=== PATIENT | female | born 1990 | race Caucasian/White ===

== ENCOUNTER 2017-01-09 17:00 | Inpatient (IN) | payer OTHER ==
[~2017-01-09] VITALS: Ht 167.6 cm; Wt 94.8 kg
[2017-01-09] MEDS ORDERED: PRENATAL VITAMI1 TA2 PO (17:44)
[2017-01-09 17:58] VITALS: BP 134/70
[2017-01-09] MEDS ORDERED: LACTATED RINGERS 1,000 ML IV SCH (19:00)
[2017-01-09] MEDS ORDERED: PROMETHAZINE 25 MG/ML VIAL IM/IVP PRN (19:00)
[2017-01-09] MEDS ORDERED: MISOPROSTOL 25 MCG TAB VG PRN (19:00)
[2017-01-09] MEDS ORDERED: OXYTOCIN 20 UNITS/LR PREMIX 1,000 ML IV SCH (19:00)
[2017-01-09] MEDS ORDERED: NALBUPHINE 10 MG/ML AMP IVP PRN (19:00)
[2017-01-09] MEDS ORDERED: OXYTOCIN 10 UNITS/ML VIAL ONE (21:08)
[2017-01-09] MEDS ORDERED: OXYTOCIN 20 UNITS/LR PREMIX 1,000 ML IV ONE (21:09)
[2017-01-09 21:31] VITALS: BP 118/56
[2017-01-09] MEDS ORDERED: ROPIVACAINE 0.2%/NS PREMIX 250 ML EPI ONE (21:43)
[2017-01-09] MEDS ORDERED: ROPIVACAINE 0.2%/NS PREMIX 250 ML EPI SCH (21:55)
[2017-01-09] MEDS ORDERED: MEASLES, MUMPS, AND RUBELLA 1 VIAL SQVAC PRN (23:25)
[2017-01-09] MEDS ORDERED: WITCH HAZEL 40 PAD PACKAGE TP PRN (23:25)
[2017-01-09] MEDS ORDERED: IBUPROFEN 800 MG TAB PO PRN (23:25)
[2017-01-09] MEDS ORDERED: HYDROcodone/APAP 5/325 MG 1 TAB TAB PO PRN (23:25)
[2017-01-09] MEDS ORDERED: OXYTOCIN 10 UNITS/ML VIAL IM PRN (23:25)
[2017-01-09] MEDS ORDERED: BENZOCAINE/MENTHOL 20%-0.5% 60 GM CAN TP PRN (23:25)
[2017-01-09] MEDS ORDERED: METHYLERGONOVINE 0.2 MG/ML AMP IM PRN (23:25)
[2017-01-09] MEDS ORDERED: oxyCODONE/APAP 5/325 MG 1 TAB TAB PO PRN (23:25)
[2017-01-09] MEDS ORDERED: TEMAZEPAM 15 MG CAP PO PRN (23:25)
--- NOTE | 2017-01-10 10:05 | NUR ---
PATIENT HAS BEEN SCREENED AND CATEGORIZED LOW NUTRITION RISK. PATIENT WILL BE SEEN WITHIN 7 DAYS OF ADMISSION. 01/16/[address]
[2017-01-10] MEDS ORDERED: DOCUSATE SOD/SENNA 50/8.6 MG 1 TAB PO SCH (21:00)
[2017-01-11] MEDS ORDERED: MOTRIN600 MG PO (13:23)
== END 2017-01-11 15:30 | disposition home or self-care (01) | DRG 560 ==
LOC: MLD 17:00 → OBSVTOIN 19:00 → MFCC 01-10 02:37
PROVIDERS: ADMIT Obstetrics & Gynecology; ATTEND Obstetrics & Gynecology
PROC: 10E0XZZ Delivery of Products of Conception, External Approach (ICD-10-PCS; principal; 2017-01-09)
PROC: 3E0S3CZ (ICD-10-PCS; 2017-01-09)
PROC: 00HU33Z Insertion of Infusion Device into Spinal Canal, Percutaneous Approach (ICD-10-PCS; 2017-01-09)
PROC: 3E0234Z Introduction of Serum, Toxoid and Vaccine into Muscle, Percutaneous Approach (ICD-10-PCS; 2017-01-09)
DX: O99.214 Obesity complicating childbirth (principal); E66.9 Obesity, unspecified; Z23 Encounter for immunization; Z3A.39 39 weeks gestation of pregnancy; Z37.0 Single live birth; Z68.38 Body mass index [BMI] 38.0-38.9, adult
CPT/HCPCS: G0378 ×2

== ENCOUNTER 2018-05-19 18:15 | Inpatient (IN) | payer OTHER ==
[~2018-05-19] VITALS: Ht 167.6 cm; Wt 97.5 kg
[~2018-05-19 18:15] MED LIST: IBUP-2213 PO
[2018-05-19] MEDS ORDERED: OXYTOCIN 20 UNITS in LACTATED RINGERS 1,000 ML IV SCH (18:38)
[2018-05-19] MEDS ORDERED: LACTATED RINGERS 1,000 ML IV SCH (18:38)
[2018-05-19] MEDS ORDERED: CARBOPROST 250 MCG/ML AMP IM PRN ×2 (18:40)
[2018-05-19] MEDS ORDERED: PROMETHAZINE 25 MG/ML VIAL IVP PRN (18:40)
[2018-05-19] MEDS ORDERED: METHYLERGONOVINE 0.2 MG/ML AMP IM PRN ×2 (18:40→20:45)
[2018-05-19] MEDS ORDERED: NALBUPHINE 10 MG/ML AMP IVP PRN (18:40)
[2018-05-19] MEDS ORDERED: IBUPROFEN 800 MG TAB PO PRN ×2 (18:40→20:45)
[2018-05-19] MEDS ORDERED: TERBUTALINE 1 MG/ML VIAL SUBQ SCH (18:45)
[2018-05-19] MEDS ORDERED: PREN-546 PO (18:50)
[2018-05-19] MEDS ORDERED: AMPICILLIN 2,000 MG VIAL ONE (19:16)
[2018-05-19] MEDS ORDERED: OXYTOCIN 20 UNITS/LR PREMIX 1,000 ML IV ONE (19:21)
[2018-05-19] MEDS ORDERED: LIDOCAINE MPF 1% - **ER/OR** 0 ML ONE (19:22)
[2018-05-19] MEDS ORDERED: OXYTOCIN 10 UNITS/ML VIAL ONE ×2 (19:22→23:56)
[2018-05-19] MEDS ORDERED: AMPICILLIN 2,000 MG in NACL 0.9% 100 ML IV SCH (19:30)
[2018-05-19] MEDS ORDERED: AMPICILLIN 1,000 MG VIAL IVP SCH (20:00)
[2018-05-19 20:08] LABS: APPEARANCE,URINE CLEAR (CLEAR); BILIRUBIN,URINE NEGATIVE (NEGATIVE); BLOOD, URINE NEGATIVE (NEGATIVE); COLOR,URINE YELLOW (YELLOW); LEUKOCYTE ESTERASE ,URINE NEGATIVE (NEGATIVE); NITRITE, URINE NEGATIVE (NEGATIVE); UGLUCOSE NEGATIVE (NEGATIVE)
[2018-05-19] MEDS ORDERED: oxyCODONE/APAP 5/325 MG 1 TAB TAB PO PRN (20:45)
[2018-05-19] MEDS ORDERED: TEMAZEPAM 15 MG CAP PO PRN (20:45)
[2018-05-19] MEDS ORDERED: BENZOCAINE/MENTHOL 20%-0.5% 60 GM CAN TP PRN (20:45)
[2018-05-19] MEDS ORDERED: MEASLES, MUMPS, AND RUBELLA 1 VIAL SQVAC PRN (20:45)
[2018-05-19] MEDS ORDERED: OXYTOCIN 10 UNITS/ML VIAL IM PRN (20:45)
[2018-05-19] MEDS ORDERED: DOCUSATE SOD/SENNA 50/8.6 MG 1 TAB PO SCH (21:00)
[2018-05-19] MEDS ORDERED: METHYLERGONOVINE 0.2 MG/ML AMP ONE (22:53)
[2018-05-19] MEDS ORDERED: MISOPROSTOL 100 MCG TAB ONE (23:28)
[2018-05-20] MEDS ORDERED: AMPICILLIN 1,000 MG VIAL IVP SCH
[2018-05-20 00:08] LABS: BASOPHILS % (AUTO) 0.3 % (0.0-2.0); HEMATOCRIT 35.1 % (36-48); HEMOGLOBIN 11.9 g/dL (12.0-16.0); LYMPHOCYTES # (AUTO) 1.5 K/uL (2.5-16.5); LYMPHOCYTES % (AUTO) 8.2 % (20.5-51.1); MEAN CORPUSCULAR HEMOGLOBIN 30 pg (27-31); MEAN CORPUSCULAR HGB CONC 34 g/dL (33-37); MEAN CORPUSCULAR VOLUME 88.9 fL (80-94); MONOCYTES # (AUTO) 0.9 K/uL (0.8-1.0); MONOCYTES % (AUTO) 4.9 % (1.7-9.3); NEUTROPHILS # (AUTO) 15.9 K/uL (1.8-7.7); NEUTROPHILS % (AUTO) 86.6 % (42.2-75.2); PLATELET COUNT (AUTO) 268 K/uL (140-450); RED BLOOD CELL COUNT(AUTO) 3.95 MIL/uL (4.20-5.40); RED CELL DISTRIBUTION WIDTH 13.6 % (11.6-13.7); WHITE BLOOD COUNT (AUTO) 18.4 K/uL (4.8-10.8)
[2018-05-20] MEDS ORDERED: OXYTOCIN 20 UNITS in LACTATED RINGERS 1,000 ML IV SCH (00:10)
[2018-05-20] MEDS ORDERED: MISOPROSTOL 100 MCG TAB RC STA (00:32)
[2018-05-20] MEDS: HYDROcodone/APAP 5/325 MG 1 TAB TAB PO PRN ×3 (02:49→19:52)
[2018-05-20] MEDS ORDERED: METHYLERGONOVINE 0.2 MG TAB PO PRN (06:35)
[2018-05-20 08:58] LABS: BASOPHILS # (AUTO) 0.1 K/uL (0.00-0.22); BASOPHILS % (AUTO) 0.4 % (0.0-2.0); EOSINOPHILS % (AUTO) 0.2 % (0.0-4.0); HEMATOCRIT 27.7 % (36-48); HEMOGLOBIN 9.7 g/dL (12.0-16.0); LYMPHOCYTES # (AUTO) 2.2 K/uL (2.5-16.5); LYMPHOCYTES % (AUTO) 15.8 % (20.5-51.1); MEAN CORPUSCULAR HEMOGLOBIN 31 pg (27-31); MEAN CORPUSCULAR HGB CONC 35 g/dL (33-37); MEAN CORPUSCULAR VOLUME 88.3 fL (80-94); NEUTROPHILS # (AUTO) 10.8 K/uL (1.8-7.7); NEUTROPHILS % (AUTO) 76.6 % (42.2-75.2); PLATELET COUNT (AUTO) 232 K/uL (140-450); RED BLOOD CELL COUNT(AUTO) 3.14 MIL/uL (4.20-5.40); RED CELL DISTRIBUTION WIDTH 13.4 % (11.6-13.7)
[2018-05-21] MEDS: HYDROcodone/APAP 5/325 MG 1 TAB TAB PO PRN (09:40)
--- NOTE | 2018-05-21 10:11 | NUR ---
PATIENT HAS BEEN SCREENED AND CATEGORIZED LOW NUTRITION RISK. PATIENT WILL BE SEEN WITHIN 7 DAYS OF ADMISSION. 05/26/[address]
== END 2018-05-21 17:00 | disposition home or self-care (01) | DRG 560 ==
LOC: OBSVTOIN 18:15 → MLD 18:15 → MFCC 22:30
PROVIDERS: ADMIT Obstetrics & Gynecology; ATTEND Obstetrics & Gynecology
PROC: 10E0XZZ Delivery of Products of Conception, External Approach (ICD-10-PCS; principal; 2018-05-19)
DX: O99.824 Streptococcus B carrier state complicating childbirth (principal); Z37.0 Single live birth; Z3A.38 38 weeks gestation of pregnancy
CPT/HCPCS: 36415; 51702; 59409; 81003; 85025; 86592; 86886; 86900; 86901; J0290; J2001; J2210; J2590; J7120

== ENCOUNTER 2019-03-14 13:52 | Emergency (ER) | payer OTHER ==
[~2019-03-14] VITALS: Ht 167.6 cm; Wt 90.7 kg
[~2019-03-14 13:52] MED LIST changes: +PREN-546 PO
[2019-03-14 14:23] VITALS: BP 140/86
--- NOTE | 2019-03-14 14:36 | NUR ---
PT AMB TO BED2
--- NOTE | 2019-03-14 14:50 | NUR ---
PT C/O L SIDE CP X 2 WEEKS 04/05 PER PT "SORE-MUSCLE TYPE PAIN", NON RADIATING. PT DENIES N/V/D/FEVER/RECENT ILLNESS/INJURY. SKIN IS PINK/WARM/DRY; AAOX4 WITH EVEN AND STEADY GAIT; LUNGS CLEAR BL; HR EVEN AND TACHY AT 109, ERMD AWARE; PATIENT POSITIONED FOR COMFORT; HOB ELEVATED; BEDRAILS UP X1; BED DOWN. ER MD MADE AWARE OF PT STATUS.
--- NOTE | 2019-03-14 14:55 | NUR ---
PT PLACED ON SANITOR
--- NOTE | 2019-03-14 15:15 | NUR ---
ERMD AT BEDSIDE
[2019-03-14 15:37] LABS: BASOPHILS % (AUTO) 0.3 % (0.0-2.0); EOSINOPHILS # (AUTO) 0.1 K/uL (0-0.4); EOSINOPHILS % (AUTO) 1.1 % (0.0-4.0); HEMATOCRIT 41.4 % (36-48); HEMOGLOBIN 13.8 g/dL (12.0-16.0); LYMPHOCYTES # (AUTO) 1.9 K/uL (2.5-16.5); LYMPHOCYTES % (AUTO) 17.6 % (20.5-51.1); MEAN CORPUSCULAR HEMOGLOBIN 30 pg (27-31); MEAN CORPUSCULAR HGB CONC 33 g/dL (33-37); MEAN CORPUSCULAR VOLUME 90.3 fL (80-94); MONOCYTES # (AUTO) 0.7 K/uL (0.8-1.0); NEUTROPHILS # (AUTO) 7.9 K/uL (1.8-7.7); PLATELET COUNT (AUTO) 312 K/uL (140-450); RED BLOOD CELL COUNT(AUTO) 4.58 MIL/uL (4.20-5.40); RED CELL DISTRIBUTION WIDTH 15.9 % (11.6-13.7); WHITE BLOOD COUNT (AUTO) 10.7 K/uL (4.8-10.8)
[2019-03-14 16:26] LABS: ANION GAP 11.1 (8-16); CARBON DIOXIDE 31.4 mmol/L (21-32); CREATININE 0.7 mg/dL (0.6-1.3); POTASSIUM 3.5 mmol/L (3.5-5.1)
[2019-03-14 16:32] LABS: ALBUMIN 3.8 g/dL (3.4-5.0); TOTAL BILIRUBIN 0.5 mg/dL (0.0-1.0)
[2019-03-14 17:23] VITALS: BP 140/75
== END 2019-03-14 17:23 | disposition home or self-care (01) ==
LOC: MED 13:52
DX: R07.89 Other chest pain (principal); Z79.899 Other long term (current) drug therapy
CPT/HCPCS: 36415; 71045; 80053; 81002; 81025; 84484; 84702; 85025; 93005; 99284; Q0092

== ENCOUNTER 2020-06-30 15:18 | Emergency (ER) | payer OTHER ==
[~2020-06-30] VITALS: Ht 170.2 cm; Wt 97.5 kg
[2020-06-30 15:27] VITALS: BP 161/83
--- NOTE | 2020-06-30 15:47 | NUR ---
30 y/o female from home c/o lower abd cramping x 3 days. Pt states she took test at home and was +. Unknown last menstrual period due to control shot. Denies vaginal bleeding. Denies N/V/D at this time. Skin warm, dry, and intact. RR even and unlabored. VSS. Pt awake and alert. medhx: htn
--- NOTE | 2020-06-30 15:50 | NUR ---
Urine collected from pt.
--- NOTE | 2020-06-30 16:01 | NUR ---
Dr Guo at bedside examining pt
--- NOTE | 2020-06-30 16:08 | NUR ---
Lab at bedside for blood draw
--- NOTE | 2020-06-30 16:13 | NUR ---
Ultrasound at bedside
[2020-06-30 16:23] LABS: APPEARANCE,URINE CLEAR (CLEAR); BILIRUBIN,URINE NEGATIVE (NEGATIVE); BLOOD, URINE NEGATIVE (NEGATIVE); COLOR,URINE YELLOW (YELLOW); LEUKOCYTE ESTERASE ,URINE NEGATIVE (NEGATIVE); NITRITE, URINE NEGATIVE (NEGATIVE); PH,URINE 6.5 (5.0-9.0); UGLUCOSE NEGATIVE (NEGATIVE)
[2020-06-30 16:24] LABS: BASOPHILS # (AUTO) 0.1 K/uL (0.00-0.22); BASOPHILS % (AUTO) 0.5 % (0.0-2.0); EOSINOPHILS # (AUTO) 0.1 K/uL (0-0.4); EOSINOPHILS % (AUTO) 0.9 % (0.0-4.0); HEMATOCRIT 38.6 % (36-48); HEMOGLOBIN 12.7 g/dL (12.0-16.0); LYMPHOCYTES # (AUTO) 2.3 K/uL (2.5-16.5); LYMPHOCYTES % (AUTO) 21.9 % (20.5-51.1); MEAN CORPUSCULAR HEMOGLOBIN 30 pg (27-31); MEAN CORPUSCULAR HGB CONC 33 g/dL (33-37); MONOCYTES # (AUTO) 0.8 K/uL (0.8-1.0); MONOCYTES % (AUTO) 7.4 % (1.7-9.3); NEUTROPHILS # (AUTO) 7.3 K/uL (1.8-7.7); NEUTROPHILS % (AUTO) 69.3 % (42.2-75.2); PLATELET COUNT (AUTO) 307 K/uL (140-450); RED BLOOD CELL COUNT(AUTO) 4.25 MIL/uL (4.20-5.40); RED CELL DISTRIBUTION WIDTH 14.8 % (11.6-13.7); WHITE BLOOD COUNT (AUTO) 10.5 K/uL (4.8-10.8)
[2020-06-30] MEDS ORDERED: NACL 0.9% 1,000 ML IV ONE (16:40)
[2020-06-30 16:48] LABS: ALBUMIN 3.8 g/dL (3.4-5.0); ANION GAP 13.6 (8-16); CARBON DIOXIDE 26.1 mmol/L (21-32); CREATININE 0.7 mg/dL (0.6-1.3); POTASSIUM 3.7 mmol/L (3.5-5.1); TOTAL BILIRUBIN 0.7 mg/dL (0.0-1.0)
--- NOTE | 2020-06-30 17:43 | NUR ---
DR. LOPEZ SPEAKING W/ PT AT BEDSIDE
--- NOTE | 2020-06-30 17:49 | NUR ---
IV removed and 2x2 gauze placed to IV site
[2020-06-30 17:50] VITALS: BP 151/79
--- NOTE | 2020-06-30 17:50 | NUR ---
Patient discharged with v/s stable. Written and verbal after care instructions given and explained. Patient verbalized understanding. Ambulatory with steady gait. All questions addressed prior to discharge. Advised to follow up with PMD.
== END 2020-06-30 17:50 | disposition home or self-care (01) ==
LOC: MED 15:18
DX: O26.891 Other specified pregnancy related conditions, first trimester (principal); O20.8 Other hemorrhage in early pregnancy; R10.30 Lower abdominal pain, unspecified; I10 Essential (primary) hypertension; Z3A.01 Less than 8 weeks gestation of pregnancy; Z79.899 Other long term (current) drug therapy
CPT/HCPCS: 36415; 76817; 80053; 81003; 81025; 84702; 85025; 86900; 86901; 96360; 99284; J7030; Q0092

== ENCOUNTER 2021-01-06 15:06 | Emergency (ER) | payer OTHER ==
[~2021-01-06] VITALS: Ht 167.6 cm; Wt 95.3 kg
[2021-01-06 15:17] VITALS: BP 125/74
--- NOTE | 2021-01-06 15:45 | NUR ---
30 YEAR OLD FEMALE COMPLAINS OF SOB AT REST X TODAY. SPO2 97% RA, BP 118/76, HR 93. PATIENT VERBALIZED HEADACHE, DENIES CHEST PAIN, PRESENCE OF NAUSEA/DIARRHEA, DENIES VOMITING. PT 33 WEEKS GESTATION, DENIES ABNORMAL ABDOMINAL CRAMPING, DENIES VAGINAL BLEEDING. VERBALIZES REGULAR MOVEMENTS. PT HAS HAD THREE PREGNANCIES, DENEIS ISSUES DURING GESTATION/DELIVERY. PT VERBALIZES COMPLIANCE WITH VITMAINS. DENEIS RECENT HISTORY OF FALLS. AO4, BREATHING EVEN AND UNLABORED, SKIN WARM AND DRY. BED IN LOWEST POSITION, LOCKED, X1 SIDERAIL UP. PMH - HTN NKA
[2021-01-06] MEDS ORDERED: DOPPLER MC ONE (15:49)
[2021-01-06 17:18] LABS: APPEARANCE,URINE SL CLOUDY (CLEAR); BILIRUBIN,URINE NEGATIVE (NEGATIVE); BLOOD, URINE NEGATIVE (NEGATIVE); COLOR,URINE YELLOW (YELLOW); LEUKOCYTE ESTERASE ,URINE 2+ (NEGATIVE); NITRITE, URINE NEGATIVE (NEGATIVE); PH,URINE 6.5 (5.0-9.0); UGLUCOSE NEGATIVE (NEGATIVE)
[2021-01-06 17:35] LABS: WBC,URINE 16-25 (MOD) /HPF (0-5)
[2021-01-06 18:38] VITALS: BP 108/70
--- NOTE | 2021-01-06 18:38 | NUR ---
Patient discharged with v/s stable. Written and verbal after care instructions ABOUT PALPITATIONS AND UTI given and explained. Patient alert, oriented and verbalized understanding of instructions. Ambulatory with steady gait. All questions addressed prior to discharge. ID band removed. Patient advised to follow up with PMD. Rx of MACROBID given. Patient educated on indication of medication including possible reaction and side effects. Opportunity to ask questions provided and answered.
== END 2021-01-06 18:38 | disposition home or self-care (01) ==
LOC: MED 15:06
DX: O23.43 Unspecified infection of urinary tract in pregnancy, third trimester (principal); O26.893 Other specified pregnancy related conditions, third trimester; R00.2 Palpitations; I10 Essential (primary) hypertension; Z79.899 Other long term (current) drug therapy; Z3A.33 33 weeks gestation of pregnancy
CPT/HCPCS: 81001; 81025; 87086; 93005; 99284

== ENCOUNTER 2021-03-29 10:22 | Emergency (ER) | payer OTHER ==
[~2021-03-29] VITALS: Ht 170.2 cm; Wt 90.7 kg
[2021-03-29 10:26] VITALS: BP 141/92
--- NOTE | 2021-03-29 10:32 | NUR ---
PT TAKEN TO BED 12
--- NOTE | 2021-03-29 10:36 | NUR ---
30 Y/O FEMALE C/O CHEST PAIN 06/05 DESCRIBES TIGHNESS NON-RADIATING X2.5 HRS. PT DENIES N/V, DENIES FEVER/CHILLS. PT TOOK IBUPROFEN PER PT STATEMENT "POST-SURGERY FOR INFLAMMATION WITH MINIMAL RELIEF. PT DENIES SOB, LUNGS CLEAR, SPO2 >94% ON RA. PMH: HTN SX: TUBAL LIGATION NKA
--- NOTE | 2021-03-29 10:47 | NUR ---
EKG at pt bedside.
--- NOTE | 2021-03-29 11:21 | NUR ---
library media technician at pt bedside.
[2021-03-29 11:31] LABS: BASOPHILS % (AUTO) 0.4 % (0.0-2.0); EOSINOPHILS # (AUTO) 0.1 K/uL (0-0.4); EOSINOPHILS % (AUTO) 1.5 % (0.0-4.0); HEMOGLOBIN 11.1 g/dL (12.0-16.0); LYMPHOCYTES # (AUTO) 1.8 K/uL (2.5-16.5); LYMPHOCYTES % (AUTO) 21.4 % (20.5-51.1); MEAN CORPUSCULAR HEMOGLOBIN 30 pg (27-31); MEAN CORPUSCULAR HGB CONC 33 g/dL (33-37); MEAN CORPUSCULAR VOLUME 90.6 fL (80-94); MONOCYTES # (AUTO) 0.6 K/uL (0.8-1.0); MONOCYTES % (AUTO) 7.1 % (1.7-9.3); NEUTROPHILS # (AUTO) 5.8 K/uL (1.8-7.7); NEUTROPHILS % (AUTO) 69.6 % (42.2-75.2); PLATELET COUNT (AUTO) 308 K/uL (140-450); RED BLOOD CELL COUNT(AUTO) 3.75 MIL/uL (4.20-5.40); RED CELL DISTRIBUTION WIDTH 13.8 % (11.6-13.7); WHITE BLOOD COUNT (AUTO) 8.3 K/uL (4.8-10.8)
--- NOTE | 2021-03-29 11:33 | NUR ---
security systems technician at pt bedside.
[2021-03-29 11:44] LABS: ALBUMIN 3.5 g/dL (3.4-5.0); ANION GAP 13.2 (8-16); CREATININE 0.7 mg/dL (0.6-1.3); POTASSIUM 4.2 mmol/L (3.5-5.1); TOTAL BILIRUBIN 0.8 mg/dL (0.0-1.0)
[2021-03-29] MEDS ORDERED: NACL 0.9% 1,000 ML IV ONE (12:20)
--- NOTE | 2021-03-29 12:57 | NUR ---
Pt taken to CT via W/C.
--- NOTE | 2021-03-29 13:08 | NUR ---
PT BACK FROM CT AND CONNECTED TO MONITOR AND FLUIDS
--- NOTE | 2021-03-29 14:07 | NUR ---
Pt resting in bed, visible equal rise and fall of chest, VSS, will continue to monitor.
[2021-03-29] MEDS ORDERED: ACET-10509 PO (14:52)
[2021-03-29 15:19] VITALS: BP 141/92
--- NOTE | 2021-03-29 15:22 | NUR ---
Patient discharged with v/s stable. Written and verbal after care instructions given and explained. Patient alert, oriented and verbalized understanding of instructions. Ambulatory with steady gait. All questions addressed prior to discharge. ID band removed. Patient advised to follow up with PMD. Rx of tynenol 500mg po q6h prn pain given. Patient educated on indication of medication including possible reaction and side effects. Opportunity to ask questions provided and answered.
--- NOTE | 2021-03-30 20:12 | NUR ---
LATE ENTRY- 0.9% NS BOLUS DISCONTINUED AT 1350.
== END 2021-03-29 13:08 | disposition home or self-care (01) ==
LOC: MED 10:22
DX: R07.9 Chest pain, unspecified (principal); I10 Essential (primary) hypertension; Z98.51 Tubal ligation status
CPT/HCPCS: 36415; 71045; 71275; 80053; 83690; 84484; 85025; 85379; 93005; 96360; 99285; J7030; Q9967

== ENCOUNTER 2021-11-09 15:31 | Emergency (ER) | payer OTHER ==
[~2021-11-09] VITALS: Ht 170.2 cm; Wt 90.7 kg
[~2021-11-09 15:31] MED LIST changes: +ACET-10509 PO
[2021-11-09 15:36] VITALS: BP 138/90
--- NOTE | 2021-11-09 15:44 | NUR ---
PT AMBULATED TO BED
--- NOTE | 2021-11-09 15:47 | NUR ---
GINGER BERGER AT BEDSIDE EXAMINING PT
--- NOTE | 2021-11-09 15:53 | NUR ---
31 y/o female bib self, pt presents to er with c/o left arm pain, specific to ac does not radiate for 2 weeks. pt states pain comes and goes, denies injury, overexertion or fall. denies n/v/d, numbness or tingling in other extremities. skin intact warm/pink/dry. denies cp, sob, cough, fever or chills. denies anyone sick in household. hr even and regular. even and symmetrical respirations, lung bases clear. pt states pain is 1/10 at this time, states she is unable to replicate the pain with movement, just comes at random, throbbing sensation. pmh: htn nka med: losartan
[2021-11-09 16:31] VITALS: BP 138/90
--- NOTE | 2021-11-09 16:31 | NUR ---
Patient discharged with v/s stable. Written and verbal after care instructions given and explained. Patient alert, oriented and verbalized understanding of instructions. Ambulatory with steady gait. All questions addressed prior to discharge. ID band removed. Patient advised to follow up with PMD. Opportunity to ask questions provided and answered.
== END 2021-11-09 16:31 | disposition home or self-care (01) ==
LOC: MED 15:31
DX: M79.602 Pain in left arm (principal); M79.89 Other specified soft tissue disorders
CPT/HCPCS: 99281

== ENCOUNTER 2023-10-24 09:36 | Emergency (ER) | payer OTHER ==
[~2023-10-24] VITALS: Ht 167.6 cm; Wt 89.8 kg
[2023-10-24 09:48] VITALS: BP 132/82; PULSE 76; RESP 18; TEMP 97.2; O2SAT 99
[2023-10-24] MEDS ORDERED: KETOROLAC 30 MG/ML VIAL IM ONE (12:15)
[2023-10-24] MEDS ORDERED: IBUP-2213 PO (13:46)
[2023-10-24] MEDS ORDERED: LID5T TP (13:46)
[2023-10-24 14:06] VITALS: BP 125/78; PULSE 77; RESP 18; TEMP 98; O2SAT 100
== END 2023-10-24 14:06 | disposition home or self-care (01) ==
LOC: MED 09:36
DX: M54.41 Lumbago with sciatica, right side (principal); I10 Essential (primary) hypertension; Z98.51 Tubal ligation status; Z79.899 Other long term (current) drug therapy; Z79.1 Long term (current) use of non-steroidal anti-inflammatories (NSAID)
CPT/HCPCS: 81025; 96372; 99283; J1885